=== PATIENT | male | born 1960 | race African-American/Black ===

== ENCOUNTER 2021-08-29 23:30 | Emergency (ER) | payer MEDICARE, MEDICAID ==
[~2021-08-29] VITALS: Ht 198.1 cm; Wt 122.3 kg
[2021-08-29 23:42] VITALS: TEMP 98.7
[2021-08-29] MEDS ORDERED: GLUCOPHAGE500 MG/TAB PO (23:45)
[2021-08-29] MEDS ORDERED: ELIQUIS 5MG PO (23:46)
[2021-08-29] MEDS ORDERED: LIPITOR 10MG10 MG PO (23:46)
[2021-08-29] MEDS ORDERED: NORVASC2.5 MG PO (23:46)
[2021-08-29] MEDS ORDERED: PRINIVIL10 MG PO (23:47)
[2021-08-29] MEDS ORDERED: LYRICA 50MG CAP50 MG PO (23:47)
[2021-08-30 00:20] LABS: BASO % 0.3 % (0.0-2.0); EOS # 0.2 K/mm3 (0.0-0.7); EOS % 2.3 % (0.0-4.0); GRAN # 3.6 K/mm3 (1.4-6.5); GRAN % 56.1 % (42.2-75.2); HEMATOCRIT 40.8 % (42.0-52.0); HEMOGLOBIN 13.6 g/dl (13.5-18.0); LYMPH % 31.4 % (20.0-51.0); MEAN CELL VOLUME 92 fl (80.0-100.0); MEAN CORPUSCULAR HEMOGLOBIN 31 pg (27-31); MEAN CORPUSCULAR HGB CONC 33 g/dl (33.0-37.0); MEAN PLATELET VOLUME 10.3 fl (7.4-10.4); MONO # 0.6 K/mm3 (0.1-0.6); MONO % 9.7 % (1.7-9.3); PLATELET COUNT 231 K/mm3 (130-400); RED BLOOD COUNT 4.46 M/mm3 (4.20-5.60); REDCELL DISTRIBUTION WIDTH-CV 12.9 % (11.5-14.5)
[2021-08-30 00:35] LABS: ALBUMIN 3.6 gm/dL (3.4-4.8); BILIRUBIN,TOTAL 0.4 mg/dL (0.2-1.2); CALCIUM 8.9 mg/dL (8.4-10.2); CREATININE, serum 1.31 mg/dL (0.72-1.25); TOTAL PROTEIN 6.8 gm/dL (6.2-8.1)
[2021-08-30] MEDS ORDERED: BACTRIM DS 8001 TAB PO (00:56)
[2021-08-30] MEDS ORDERED: CEPHALEXIN500 M1 PO (00:56)
[2021-08-30] MEDS ORDERED: PERCOCET 325 MG1 TA2 PO (00:59)
[2021-08-30 01:38] VITALS: BP 110/93; PULSE 76
== END 2021-08-30 01:33 | disposition home or self-care (01) ==
LOC: COL.ER 23:30
PROVIDERS: Personal Emergency Response Attendant
DX: L02.416 Cutaneous abscess of left lower limb (principal); L03.116 Cellulitis of left lower limb
CPT/HCPCS: J0696